=== PATIENT | female | born 2000 | race Caucasian/White ===

== ENCOUNTER 2022-03-22 23:54 | Emergency (ER) | payer OTHER, SELFPAY ==
--- NOTE | ~2022-03-22 | US_ITS ---
EXAMINATION: US pelvic complete w TV DATE: 03/23/2022 04:19 INDICATION: Right adnexal pain. TECHNIQUE: Multiple transabdominal sonographic images of the pelvis were obtained. COMPARISON: None. FINDINGS: The uterus measures 8.5 x 3.6 x 4.5 cm. There is no free fluid in the pelvis. The endometrial complex measures 12 mm in thickness. The right ovary measures 2.8 x 1.8 x 2.4 cm. The left ovary measures 4. 0 x 2.5 x 2.2 cm. There is normal vascular flow in the ovaries. IMPRESSION: 1. Normal pelvis. Reviewed, dictated and finalized at location A. IMPRESSION: 1. Normal pelvis.
[2022-03-22 23:54] VITALS: BP 138/74; PULSE 99; RESP 22; TEMP 36.3; O2SAT 100
[2022-03-23 00:11] VITALS: BP 124/74; PULSE 63; RESP 16; O2SAT 100
[2022-03-23 01:34] LABS: Basophils Absolute Auto 0.1 K/mm3 (0.0-0.1); Basophils Percent Auto 0.8 % (0.2-1.2); Eosinophils Absolute Auto 0.1 K/mm3 (0-0.3); Eosinophils Percent Auto 0.8 % (0-4.4); Hematocrit 36.6 % (37.0-47.0); Hemoglobin 12.6 g/dL (12.0-15.0); Immature Granulocyte Absolute 0.03 K/mm3 (0.00-0.031); Immature Granulocyte Percent A 0.3 % (0-0.5); Lymphocytes Absolute Auto 2.38 K/mm3 (0.9-3.2); Lymphocytes Percent Auto 26.6 % (18.3-44.2); Mean Corpuscular HGB Conc 34.4 g/dl (32-36); Mean Corpuscular Hemoglobin 30.3 pg (26-34); Mean Platelet Volume 9.5 fl (7.4-10.4); Monocytes Absolute Auto 0.8 K/mm3 (0.1-0.6); Monocytes Percent Auto 8.5 % (2.6-8.5); Neutrophils Absolute Auto 5.7 K/mm3 (1.3-6.7); Platelet Count Result 333 k/mm3 (150-375); Red Blood Count 4.16 M/mm3 (4.2-5.4); Red Cell Distribution Width 12.2 % (11.5-14.5)
[2022-03-23 01:43] LABS: Add Urine Microscopic? NO; Appearance Urine Slightly Cloudy (Clear); Bilirubin Urine Negative (Negative); Blood Urine Negative (Negative); Color Urine Yellow (Yellow); Glucose Urine UA Negative (Negative); Ketones Urine Negative (Negative); Leukocyte Esterase Ur Negative LEU/UL (Negative); Nitrate Urine Negative (Negative); Protein Urine Negative (Negative); Specific Grav Ur 1.025 (1.001-1.035); Urobilinogen Urine 0.2 mg/dL (<2.0)
[2022-03-23 01:56] LABS: Anion Gap 9 mmol/L (8-16); Blood Urea Nitrogen 12 mg/dL (7-17); Calcium 9.3 mg/dL (8.4-10.2); Carbon Dioxide 25 mmol/L (22-30); Chloride 104 mmol/L (98-107); Estimated Glomerular Filt Rate > 60; Glucose 108 mg/dL (65-110); Potassium 3.6 mmol/L (3.4-5.0); Sodium 138 mmol/L (137-145)
--- NOTE | 2022-03-23 04:48 | ED.ABDPAIN ---
HPI - Abdominal Pain General Chief Complaint: Abdominal Pain Stated Complaint: RLQ pain Time Seen by Provider: 03/23/22 00:27 History of Present Illness HPI narrative: Patient is a 21-year-old female who presents ER with right lower quadrant pain. Began this evening. Some low pelvis. No vaginal bleeding or vaginal discharge. Denies urinary frequency or urgency. She does think she may have had some brief dysuria. Has not taking pain medication. No alleviating factors. No aggravating factors. Denies diarrhea. Without nausea and vomiting. No history of kidney stones or ovarian cysts. Patient sexually active and using condoms. Related Data Allergies Allergy/AdvReac Type Severity Reaction Status Date / Time No Known Allergies Allergy Verified 03/22/22 23:58 Review of Systems Review of Systems: All systems reviewed & are unremarkable except as noted in HPI and below Constitutional: Constitutional: Denies chills, Denies fatigue and Denies fever(s) Gastrointestinal: Gastrointestinal: Reports abdominal pain, Denies constipation, Denies diarrhea, Denies nausea and Denies vomiting Genitourinary: Genitourinary: Denies abnormal vaginal bleeding, Denies hematuria, Denies nocturia, Denies dysuria, Reports pelvic pain and Denies vaginal discharge PMF Past Medical History Medical History (Updated 03/23/22 @ 05:19 by Brady Osorio MD) Healthy female adult Surgical History Surgical History (Updated 03/23/22 @ 04:51 by Brady Osorio MD) No history of previous surgery Social History Social History (Updated 03/23/22 @ 04:51 by Brady Osorio MD) Smoking status: Never smoker Exam Narrative: GENERAL: Well-appearing, well-nourished, and in no acute distress. HEAD: Normocephalic, atraumatic. CHEST: Clear to auscultation. No respiratory distress. HEART: Regular rate and rhythm. Normal peripheral pulses. ABDOMEN: Soft, mild tenderness in the right pelvic region but no McBurney's point tenderness, nondistended. EXTREMITIES: Normal range of motion. No edema. SKIN: Warm, dry, no rash. NEURO: Alert and oriented x3. PSYCH: Normal mood and affect. Course Course Emergency Course: Patient declined pain medication. Still some mild right-sided pelvic discomfort. No McBurney's point tenderness. Offered CT scan to rule out appendicitis but patient declines. Discussed signs and symptoms necessitating return to ER and patient verbalized understanding. Vital Signs Vital signs: Vital Signs Temperature 97.4 F L 03/22/22 23:54 Pulse Rate 99 03/22/22 23:54 Respiratory Rate 22 H 03/22/22 23:54 Blood Pressure 138/74 03/22/22 23:54 Pulse Oximetry 100 03/22/22 23:54 Oxygen Delivery Room Air 03/22/22 23:54 Temperature 97.4 F L 03/22/22 23:54 Pulse Rate 99 03/22/22 23:54 Respiratory Rate 22 H 03/22/22 23:54 Blood Pressure 138/74 03/22/22 23:54 Pulse Oximetry 100 03/22/22 23:54 Oxygen Delivery Room Air 03/22/22 23:54 MDM - Abdominal Pain Lab Data Result diagrams: 03/23/22 01:07 03/23/22 01:07 Labs: Lab Results 03/23/22 03/23/22 03/23/22 Range/Units 00:50 01:07 01:07 WBC 9.0 (4.5-10.0) K/mm3 RBC 4.16 L (4.2-5.4) M/mm3 Hgb 12.6 (12.0-15.0) g/dL Hct 36.6 L (37.0-47.0) % MCV 88.0 (80-100) fl MCH 30.3 (26-34) pg MCHC 34.4 (32-36) g/dl RDW 12.2 (11.5-14.5) % Plt Count 333 (150-375) k/mm3 MPV 9.5 (7.4-10.4) fl Immature Gran % (Auto) 0.3 (0-0.5) % Neut % (Auto) 63.0 (45.5-73.1) % Lymph % (Auto) 26.6 (18.3-44.2) % Johnston % (Auto) 8.5 (2.6-8.5) % Eos % (Auto) 0.8 (0-4.4) % Baso % (Auto) 0.8 (0.2-1.2) % Lymph # (Auto) 2.38 (0.9-3.2) K/mm3 Johnston # (Auto) 0.8 H (0.1-0.6) K/mm3 Eos # (Auto) 0.1 (0-0.3) K/mm3 Baso # (Auto) 0.1 (0.0-0.1) K/mm3 Abs Immat Gran (auto) 0.03 (0.00-0.031) K/mm3 Absolute Neuts (auto) 5.7 (1.3-6.7) K/mm3 Abso
[2022-03-23 05:06] VITALS: BP 101/56; PULSE 70; RESP 16; O2SAT 100
== END 2022-03-23 05:25 | disposition home or self-care (01) ==
PROVIDERS: Emergency Provider Emergency Medicine
DX: R10.2 Pelvic and perineal pain (principal)
CPT/HCPCS: 36415; 76830; 76856; 80048; 81003; 81025; 85025; 99284

== ENCOUNTER 2024-03-24 22:13 | Emergency (ER) | payer OTHER, SELFPAY ==
--- NOTE | ~2024-03-24 | CT_ITS ---
CT of the Abdomen and Pelvis: Indication: Abdominal pain Technique: 2.5 mm axial scans were obtained through the abdomen and pelvis following intravenous adm inistration of 100 cc of Omnipaque 350. Dose reduction technique was used on this scan by utilizing a utomated exposure control and iterative reconstruction technique. The dose-length product (DLP) was 2 01.89 mGy-cm. Findings: Scans through the lung bases are unremarkable. The liver, spleen, pancreas, gallbladder, adrenals and kidneys are within normal limits. No evidence of aortic aneurysm. No lymphadenopathy. No bowel obstruction or bowel wall thickening. There is no evidence to suggest acute appendicitis. Images through the pelvis were performed. Urinary bladder unremarkable. No adnexal mass evident. Trac e free fluid in pelvis present, nonspecific. Impression: Trace pelvic free fluid, nonspecific, possibly physiologic. No other significant findings. Reviewed, dictated and finalized at [facility]. Impression: Trace pelvic free fluid, nonspecific, possibly physiologic. No other significant findings.
[2024-03-24 22:38] VITALS: BP 111/57; PULSE 138; RESP 20; TEMP 36.9; O2SAT 100
--- NOTE | 2024-03-24 22:55 | ECG_ITS ---
SEE SCANNED COPY FOR CONFIRMED REPORT MTDD
[2024-03-24 23:53] VITALS: BP 114/77; PULSE 109; RESP 14; O2SAT 96
[2024-03-25 00:03] LABS: Basophils Percent Auto 0.2 % (0.2-1.2); Hematocrit 39.7 % (37.0-47.0); Hemoglobin 13.6 g/dL (12.0-15.0); Immature Granulocyte Absolute 0.06 K/mm3 (0.00-0.031); Immature Granulocyte Percent A 0.3 % (0-0.5); Lymphocytes Percent Auto 1.1 % (18.3-44.2); Mean Corpuscular HGB Conc 34.3 g/dl (32-36); Mean Corpuscular Hemoglobin 30.7 pg (26-34); Mean Corpuscular Volume 89.6 fl (80-100); Mean Platelet Volume 9.6 fl (7.4-10.4); Monocytes Absolute Auto 0.5 K/mm3 (0.1-0.6); Monocytes Percent Auto 2.6 % (2.6-8.5); Neutrophils Absolute Auto 17.5 K/mm3 (1.3-6.7); Neutrophils Percent Auto 95.8 % (45.5-73.1); Platelet Count Result 320 k/mm3 (150-375); Red Blood Count 4.43 M/mm3 (4.2-5.4); Red Cell Distribution Width 12.6 % (11.5-14.5); White Blood Count 18.3 K/mm3 (4.5-10.0)
[2024-03-25 00:11] LABS: Alanine Aminotransferase 16 U/L (6-35); Albumin Level 5.1 g/dL (3.5-5.1); Alkaline Phosphatase 58 U/L (38-126); Anion Gap 11 mmol/L (4-12); Aspartate Amino Transferase 22 U/L (14-36); Bilirubin,Total 1.1 mg/dL (0.2-1.3); Blood Urea Nitrogen 15 mg/dL (7-17); Carbon Dioxide 22 mmol/L (22-30); Chloride 105 mmol/L (98-107); Estimated CRCL calculation 75 ml/min; Estimated Glomerular Filt Rate > 60; Glucose 127 mg/dL (65-110); Lipase 49 U/L (23-300); Potassium 3.9 mmol/L (3.4-5.0); Sodium 138 mmol/L (137-145)
--- NOTE | 2024-03-25 01:48 | ED.NAVMDI ---
HPI - Nausea/Vomiting/Diarrhea General Chief complaint: Nausea/Vomiting/Diarrhea <MESSI Zaragoza Last Filed: 03/25/24 03:34> Stated complaint: nausea and vomiting <MESSI Zaragoza Last Filed: 03/25/24 03:34> Time Seen by Provider: 03/25/24 01:41 <MESSI Zaragoza Last Filed: 03/25/24 03:34> History of Present Illness HPI Narrative: 23-year-old female no past medical history presents to emergency department for sudden-onset nausea, vomiting and diarrhea at 1:00 p.m. yesterday. Patient states she had [place] a negative for lunch and 30 minutes later began developing symptoms. She states she has been having difficulty keeping down food and fluids. She is reporting generalized abdominal discomfort, specifically in the periumbilical region and right lower quadrant. She denies fever, chest pain or shortness of breath, cough or congestion, dysuria or hematuria. No prior abdominal surgeries. Denies sick contacts. <MESSI Zaragoza Last Filed: 03/25/24 03:34> Related Data Allergies/Adverse reactions: Allergies Allergy/AdvReac Type Severity Reaction Status Date / Time No Known Allergies Allergy Verified 03/22/22 23:58 <MESSI Zaragoza Last Filed: 03/25/24 03:34> Review of Systems Review of Systems: CONSTITUTIONAL: Denies fever, chills, or sweats. EYES: Denies visual changes, redness, or discharge. ENT: Denies rhinorrhea, congestion, sore throat, or otalgia. CARDIOVASCULAR: Denies chest pain, palpitations, or edema. RESPIRATORY: Denies cough or dyspnea. GASTROINTESTINAL: See HPI GENITOURINARY: Denies dysuria or hematuria. SKIN: Denies rash or itching. MUSCULOSKELETAL: Denies back pain, joint pain, or myalgia. NEUROLOGIC: Denies headache, numbness, or weakness. PSYCHIATRIC: Denies anxiety or depression. <MESSI Zaragoza Last Filed: 03/25/24 03:34> PMFSH Past Medical History Medical History: Medical History Healthy female adult <Jeane Wiseman PA-C - Last Filed: 03/25/24 03:34> Surgical History Surgical History: Surgical History No history of previous surgery <Jeane Wiseman PA-C - Last Filed: 03/25/24 03:34> Social History Social History: Social History Smoking status: Never smoker <Jeane Wiseman PA-C - Last Filed: 03/25/24 03:34> Exam Narrative: GENERAL: Well-appearing, well-nourished, and in no acute distress. HEAD: Normocephalic, atraumatic. EYES: PERRLA and EOMI. ENT: Nares clear, no rhinorrhea or epistaxis. Mucous membranes dry NECK: Supple. CHEST: Clear to auscultation. No respiratory distress. HEART: Regular rate and rhythm. No murmur heard. Normal peripheral pulses. ABDOMEN: Quiet bowel sounds. Abdomen soft with mild tenderness in the periumbilical region and right lower quadrant. No rebound, guarding or rigidity. No CVA tenderness. EXTREMITIES: Normal range of motion. No edema. SKIN: Warm, dry, no rash. NEURO: No focal deficits. 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 I performed all aspects of the MDM as documented <Perry Lira MD - Last Filed: 03/25/24 06:24> Vital Signs Vital signs: Vital Signs Temperature 36.9 C 03/24/24 22:38 Pulse Rate 138 H 03/24/24 22:38 Respiratory Rate 20 03/24/24 22:38 Blood Pressure 111/57 L 03/24/24 22:38 Pulse Oximetry 100 03/24/24 22:38 Oxygen Delivery Room Air 03/24/24 22:38 Temperature 37.2 C 03/25/24 05:18 Pulse Rate 105 H 03/25/24 05:18 Respiratory Rate 19 03/25/24 05:18 Blood Pressure 97/48 L 03/25/24 05:18 Pulse Oximetry 98 03/25/24 05:18 Oxygen Delivery Room Air
[2024-03-25] MEDS: ONDANSETRON INJ 4 MG/2 ML VIAL IV PUSH (02:05)
[2024-03-25] MEDS: SODIUM CHLORIDE 0.9% IV 1,000 ML 999 ML IV CONT ×2 (02:05→04:24)
[2024-03-25 02:24] LABS: SPREG INTERNAL CONTROL Positive; Serum Qual hCG Negative
[2024-03-25 03:07] VITALS: BP 114/67; PULSE 121; RESP 14; O2SAT 98
[2024-03-25 04:26] LABS: Appearance Urine Clear (Clear); Bacteria Urine Rare /hpf; Bilirubin Urine Negative (Negative); Blood Urine 3+ (Negative); Color Urine Yellow (Yellow); Glucose Urine UA Negative (Negative); Ketones Urine Trace mg/dL (Negative); Leukocyte Esterase Ur Negative LEU/UL (Negative); Need Manual Microscopic Reviewed; Nitrate Urine Negative (Negative); Non Pathogenic Casts 0-2; Protein Urine Trace mg/dL (Negative); RBC Urine 0-2 /hpf (0-2); Squamous Epithelial Cell Urine Occasional /hpf (Few); Urobilinogen Urine 0.2 mg/dL (<2.0); pH Urine 5.5 (5.0-9.0)
[2024-03-25 04:27] LABS: Add Urine Microscopic? YES; Specific Grav Ur 1.082 (1.001-1.035)
[2024-03-25 04:45] VITALS: PULSE 104; RESP 16
[2024-03-25 05:18] VITALS: BP 97/48; PULSE 105; RESP 19; TEMP 37.2; O2SAT 98
== END 2024-03-25 06:31 | disposition home or self-care (01) ==
PROVIDERS: Emergency Medicine; Emergency Provider Physician Assistant; PCP Family Medicine
DX: K52.9 Noninfective gastroenteritis and colitis, unspecified (principal); R00.0 Tachycardia, unspecified; R94.31 Abnormal electrocardiogram [ECG] [EKG]
CPT/HCPCS: 36415; 74177; 80053; 81001; 83690; 84703; 85025; 87077; 87086; 87088; 87181; 93005; 96361; 96374; 99284; J2405; J7030; Q9967

== ENCOUNTER 2025-09-15 03:29 | Outpatient (CLI) | payer OTHER, SELFPAY ==
[2025-09-15 04:13] LABS: Beta HCG Quantitative < 2.39 mIU/ML
--- OUTSIDE RECORDS SUMMARY | 2025-09-15 05:39 | XMS_ITS | Clinical Summary ---
Author Organization [facility] Address [address] [facility] [address] [place] [address] Phone Care Team Providers Care Strategic Procurement Manager Name Role Phone Unavailable Primary Care Provider Unavailabl e Allergies Active Allergy Reactions Criticality Noted Date Comments Bee Venom Unknown Medium Other Unknown High Agent: Seafood/ Shellfish Medications Drospirenone-Eth inyl Estradiol 3-0.02 MG Tablet Take 1 Tablet by mouth daily. 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/administration 05/06/2018 Encounter for contraceptive management 8 Sprain of deltoid ligament of ankle Closed fracture of lateral malleolus Immunizations Immunization Administration Dates Next Due Covid-19, Mrna, Lnp-s, PF, 1 00 mcg/0.5 mL Dose (Moderna) 11/22/2020,10/25/2020 DTAP VACCINE 11/11/2000,2000,01/01/2000 DTAP VACCINE, UNSPECIFIED FORMULATION 02/16/2004 DTP Vaccine 1999 HEP B/HIB Combined Vaccine 01/01/2000 Hepatitis A Vaccine, Pediatr ic/adolescent, 2 Dose Schedule 06/12/2016,08/04/2015 Hepatitis B Vaccine, Pediatric/adolescent 1998,1999 Hib Vaccine,unspecified Formulation 11/11/2000,0 1999 Human Papillomavirus (HPV) 9-valent Vaccine 05/28,08/04/2015 Inactivated Polio Vaccine 2000,01/01/2000, 1999 Influenza Vaccine Nasal 08/14/2010 MMR Vaccine 02/16/2004,2000 Meningococcal Vaccine 08/04/2015 Polio Vaccine,unspecified Formulation 06/06/2005 TDAP Vaccine 08/11/2013 Varicella Vaccine Live 08/11/2013,06/06/2005 Family History Medical History Relation Name Comments No Known Problems Father No Known Problems Mother Relation Name Status Comments Father Mother Social History Tobacco Use Types Packs/Day Years Used Date Smoking Tobacco: Never Smokeless Tobacco: Never Alcohol Use Standard Drinks/Week Comments No 0 (1 standard drink = 0.6 oz pur e alcohol) PHQ-2 Answer Date Recorded Total Score - Questions 1-9 0 05/29 Sexually Active Control Partners Comments Yes Oral Contraceptive Male Comments No Sex and Gender Information Value Date Recorded Sex Assigned at Not on file Legal Sex Female 6:44 PM CDT Gender Identity Not on file Sexual Orientation Not on file Last Filed Vital Signs Vital Sign Reading Time Taken Comments Blood Pressure 96/62 06/16/2021 2:28 PM CDT Pulse 103 06/16/2021 2:28 PM CDT Temperature - - Respiratory Rate 16 06/16/2021 2:28 PM CDT Oxygen Saturation 98% 06/16/2021 2:28 PM CDT Inhaled Oxygen Concentration - - Weight 54.3 kg (119 lb 12.8 oz) 06/16/2021 2:28 PM CDT Height 158.8 cm (5' 2.5) 06/16/2021 2:28 PM CDT Body Mass Index 21.56 06/16/2021 2:28 PM CDT Plan of Treatment Health Maintenance Due Date Last Done Comments Hepatitis C Virus (HCV) Screening 1999 Human Papillomavirus (HPV) Immunization (3 - 3-dose series) 09/04/2016 06/12/2016, 08/04/2015 DTaP/Tdap/Td Immunization (7 - Td or Tdap) 08/11/2023 08/11/2013, 02/16/2004, 11/11/2000, Additional history exists Influenza Immunization (#1) 2025 08/14/2010 SARS-COV-2 Immunization ( season) 2025 11/22/2020, 10/25/2020 Respiratory Syncytial Virus (RSV) Immunization (Adult) (1 - 1-dose 75+ series) 2074 Hepatitis B Immunization Completed 000, 1999, 1999 Varicella Immunization Completed 08/11/2013, 2004 Meningococcal Immunization (ACWY) Completed 08/04/2015 Pneumococcal Immunization Combined Aged Out No longer eligible based on patient's age to complete this topic Rotavirus Immunization Aged Out No lo nger eligible based on patient's age to complete this topic Insurance [facility] [place] [address]
--- OUTSIDE RECORDS SUMMARY | 2025-09-15 05:39 | XMS_ITS | Clinical Summary ---
Author Organization [facility] Address [address] [place] [id number] Care Team Providers Care Social Media Assistant Name Role Phone Unavailable Primary Care Provider Unavailabl e Allergies Active Allergy Reactions Criticality Noted Date Comments Bee Venom Unknown Medium 10/11/2021 Seasonal Unknown High 10/11/2021 Agent: Seafood/ Shellfish Medications latanoprost (XALATAN) 0.005 % ophthalmic solution Place 1 drop into both eyes daily. 05/04/2024 Active Active Problems No known active problems Resolved Problems Problem Noted Date Diagnosed Date Resolved Date Preventative health care 10/11/2021 Immunizations Immunization Administration Dates Next Due Dtap (Acel-Immune) 11/11/2000,2000, 000 Dtap (Generic) 02/16/2004 Dtp (Generic) 1999 HPV GARDASIL 9-VALENT 06/12/2016,08/04/2015 Hepatitis A (Havrix [address]) 06/12/2016, 015 Hepatitis B Pediatric 1999,1999 Hib (Generic) 11/11/2000,1999 Hib-Hepatitis B (Comvax) 01/01/2000 Influenza (FluMist) 08/14/2010 Influenza (Generic) 08/14/2010 MMR (MMRII) 02/16/2004,2000 Meningococcal (Menactra) 08/04/2015 Polio IPV (Ipol) 2000,01/01/2000, 9 Polio Opv (Generic) 06/06/2005 Tdap (Generic) 08/11/2013 Varicella (Varivax) 08/11/2013,06/06/2005 Family History Relation Status Comments Brother Alive Father Alive Mother Alive Sister Alive Social History Tobacco Use Types Packs/Day Years Used Date Smoking Tobacco: Never Smokeless Tobacco: Never Tobacco Cessation:Counseling Given: Not Answered Alcohol Use Standard Drinks/Week Comments Yes 0 (1 standard drink = 0.6 oz pur e alcohol) socially PHQ-2 Answer Date Recorded PHQ-2 Score - If the patient scores above 3, please move on to questions 3-9 0 10/11/2021 Comments No Sex and Gender Information Value Date Recorded Sex Assigned at Not on file Legal Sex Female 6:33 PM [employer]IC Gender Identity Not on file Sexual Orientation Not on file Last Filed Vital Signs Vital Sign Reading Time Taken Comments Blood Pressure 86/60 05/07/2024 9:14 AM CDT Pulse 82 05/07/2024 9:14 AM CDT Temperature 36.3 C (97.3 F) 05/07/2024 9:14 AM CDT Respiratory Rate 16 05/07/2024 9:14 AM CDT Oxygen Saturation 97% 05/07/2024 9:14 AM CDT Inhaled Oxygen Concentration - - Weight 49.9 kg (110 lb) 05/07/2024 9:14 AM CDT Height 160 cm (5' 3) 05/07/2024 9:14 AM CDT Body Mass Index 19.49 05/07/2024 9:14 AM CDT Plan of Treatment Health Maintenance Due Date Last Done Comments Cervical Cancer Screening Pap Smear (Age 21 to 29) Every 3 Years 1999 Cervical Cancer Screening 1999 HPV Vaccines (3 - 3-dose series) 09/04/2016 06/12/2016, 08/04/2015 Hepatitis C 2017 Annual Physical 10/11/2022 10/11/2021 DTaP, Tdap and Td Vaccines (7 - Td or Tdap) 08/11/2023 08/11/2013, 02/16/2004, 11/11/2000, Additional history exists PHQ-2 (Physician [facility]) 10/28/2024 COVID-19 Vaccine (3 - season) 2025 11/22/2020, 10/25/2020 Influenza Adult (#1) 2025 08/14/2010, 08/14/20 10 Hepatitis B Vaccines Completed 01/01/2000, 1999, 1999 Meningococcal Vaccine Completed 08/04/2015 Hepatitis A Vaccines Completed 06/12/2016, 08/04/20 15 Meningococcal B Vaccine Aged Out No l onger eligible based on patient's age to complete this topic Pneumococcal Vaccine: Pediatrics (0 to 5 Years) and At-Risk Patients (6 to 49 Years) Aged Out No longer eligible based on patient's age to complete this topic RSV Immunizations Under 20 Months Aged Out No longer eligible based on patient's age to complete this topic Insurance [place] [id number]
== END 2025-09-15 03:30 | disposition home or self-care (01) ==
PROVIDERS: Visit Provider Obstetrics & Gynecology
DX: O02.81 Inappropriate change in quantitative human chorionic gonadotropin (hCG) in early pregnancy (principal)
CPT/HCPCS: 36415; 84702